=== PATIENT | female | born 1945 | race Two or more races ===

== ENCOUNTER → 2017-07-19 | Emergency (ER) | payer OTHER ==
[~2017-07-19] VITALS: Ht 165.1 cm; Wt 68.9 kg
== END | disposition left against medical advice (07) ==
LOC: ER 15:54
DX: Z53.20 Procedure and treatment not carried out because of patient's decision for unspecified reasons (principal)

== ENCOUNTER → 2018-05-08 06:00 | Outpatient (CLI) | payer OTHER ==
[~2018-05-08 06:00] MED LIST: COZAAR100 MG; LEXAPRO5 MG; SINGULAIR10 MG; ZYRTEC10 M3
== END | disposition home or self-care (01) ==
LOC: EKG 06:00 → ADM 09:15 → EDSTATUS 05-16 09:15 → CIR.AMB 05-16 09:15
DX: N81.6 Rectocele (principal); K57.30 Diverticulosis of large intestine without perforation or abscess without bleeding; Z01.810 Encounter for preprocedural cardiovascular examination; K64.1 Second degree hemorrhoids; K59.02 Outlet dysfunction constipation; Z01.812 Encounter for preprocedural laboratory examination

== ENCOUNTER 2018-12-25 06:39 | Emergency (ER) | payer OTHER ==
[~2018-12-25] VITALS: Ht 165.1 cm; Wt 68.9 kg
== END 2018-12-25 10:33 | disposition home or self-care (01) ==
LOC: ER 06:39
DX: K29.70 Gastritis, unspecified, without bleeding (principal); R05 Cough

== ENCOUNTER 2020-08-08 07:57 | Emergency (ER) | payer OTHER ==
[~2020-08-08] VITALS: Ht 165.1 cm; Wt 71.7 kg
[2020-08-08] MEDS ORDERED: CLONAZEPAM0.5 MG PO (08:31)
[2020-08-08] MEDS ORDERED: CANDESARTAN CIL16 MG PO (08:31)
== END 2020-08-08 15:48 | disposition home or self-care (01) ==
LOC: ER 07:57
DX: K57.32 Diverticulitis of large intestine without perforation or abscess without bleeding (principal); R10.32 Left lower quadrant pain; Z03.818 Encounter for observation for suspected exposure to other biological agents ruled out

== ENCOUNTER 2020-10-15 07:15 | Emergency (ER) | payer OTHER ==
[~2020-10-15] VITALS: Ht 167.6 cm; Wt 73.5 kg
[~2020-10-15 07:15] MED LIST changes: +CANDESARTAN CIL16 MG PO; +CLONAZEPAM0.5 MG PO
[2020-10-15] MEDS ORDERED: ZANAFLEX4 M1 PO (07:22)
[2020-10-15] MEDS ORDERED: KETO10TA2 PO (10:01)
[2020-10-15] MEDS ORDERED: SKELAXIN800 MG PO (10:01)
== END 2020-10-15 10:06 | disposition home or self-care (01) ==
LOC: ER 07:15
DX: M54.2 Cervicalgia (principal); M62.838 Other muscle spasm; M54.12 Radiculopathy, cervical region

== ENCOUNTER 2020-10-20 10:36 | Outpatient (CLI) | payer OTHER ==
[~2020-10-20 10:36] MED LIST changes: +KETO10TA2 PO; +SKELAXIN800 MG PO; +ZANAFLEX4 M1 PO
== END 2020-10-20 10:52 | disposition home or self-care (01) ==
LOC: MRI 10:36
PROVIDERS: ATTEND General Practice
DX: M54.12 Radiculopathy, cervical region (principal)
CPT/HCPCS: 70540; 72141

== ENCOUNTER 2021-01-03 08:54 | Emergency (ER) | payer OTHER ==
[~2021-01-03] VITALS: Ht 165.1 cm; Wt 73.5 kg
[2021-01-03] MEDS ORDERED: MACROBID 100 M100 MG PO (14:18)
[2021-01-03] MEDS ORDERED: PYRIDIUM100 M1 PO (14:18)
== END 2021-01-03 14:23 | disposition home or self-care (01) ==
LOC: ER 08:54
DX: N39.0 Urinary tract infection, site not specified (principal); R10.31 Right lower quadrant pain; R10.32 Left lower quadrant pain; R31.29 Other microscopic hematuria

== ENCOUNTER 2021-01-13 09:54 | Outpatient (CLI) | payer OTHER ==
[~2021-01-13 09:54] MED LIST changes: +MACROBID 100 M100 MG PO; +PYRIDIUM100 M1 PO
== END 2021-01-13 15:38 | disposition home or self-care (01) ==
LOC: LAB 09:54
PROVIDERS: ATTEND Internal Medicine Hematology & Oncology
DX: R23.3 Spontaneous ecchymoses (principal); N81.89 Other female genital prolapse

== ENCOUNTER 2021-01-13 11:15 | Inpatient (IN) | payer OTHER ==
[~2021-01-13] VITALS: Ht 152.4 cm; Wt 526.2 kg
[2021-01-18] MEDS ORDERED: PRAVASTATIN SOD10 MG (09:43)
[2021-01-18] MEDS ORDERED: CICLOPIROX15 GM (09:43)
[2021-01-18] MEDS ORDERED: GABAPENTIN300 M2 (09:43)
[2021-01-18] MEDS ORDERED: ESTRADIOL42.5 GM (09:44)
[2021-01-18] MEDS ORDERED: BUSPIRONE HCL5 MG (09:44)
[2021-01-18] MEDS ORDERED: PREDNISOLONE ACE5 ML (09:44)
[2021-01-18] MEDS ORDERED: PANTOPRAZOLE SO40 MG (09:44)
[2021-01-21] MEDS ORDERED: ULTRAM50 MG PO (15:04)
[2021-01-21] MEDS ORDERED: INTESTINEX680 M1 PO (15:04)
== END 2021-01-21 16:48 | disposition home or self-care (01) | DRG 331 ==
LOC: O/R 01-18 07:18 → SURH 01-18 07:18
PROVIDERS: ADMIT Surgery; ATTEND Surgery
PROC: 0DQP4ZZ Repair Rectum, Percutaneous Endoscopic Approach (ICD-10-PCS; 2021-01-18)
PROC: 0DJD8ZZ Inspection of Lower Intestinal Tract, Via Natural or Artificial Opening Endoscopic (ICD-10-PCS; 2021-01-18)
PROC: 3E0F7SF Introduction of Other Gas into Respiratory Tract, Via Natural or Artificial Opening (ICD-10-PCS; 2021-01-18)
PROC: 0DTN4ZZ Resection of Sigmoid Colon, Percutaneous Endoscopic Approach (ICD-10-PCS; principal; 2021-01-18 12:45)
DX: K62.3 Rectal prolapse (principal); K57.30 Diverticulosis of large intestine without perforation or abscess without bleeding; K64.1 Second degree hemorrhoids; Z20.822 Contact with and (suspected) exposure to COVID-19

== ENCOUNTER 2021-02-14 12:37 | Emergency (ER) | payer OTHER ==
[~2021-02-14] VITALS: Ht 165.1 cm; Wt 72.6 kg
[~2021-02-14 12:37] MED LIST changes: +BUSPIRONE HCL5 MG; +CICLOPIROX15 GM; +ESTRADIOL42.5 GM; +GABAPENTIN300 M2; +INTESTINEX680 M1 PO; +PANTOPRAZOLE SO40 MG; +PRAVASTATIN SOD10 MG; +PREDNISOLONE ACE5 ML; +ULTRAM50 MG PO
[2021-02-14] MEDS ORDERED: ANALPRAM HC 2.5%4 GM RECTAL (17:02)
== END 2021-02-14 17:19 ==
LOC: ER 12:37
DX: K62.5 Hemorrhage of anus and rectum (principal); N81.6 Rectocele

== ENCOUNTER 2021-04-02 09:13 | Emergency (ER) | payer OTHER ==
[~2021-04-02] VITALS: Ht 165.1 cm; Wt 72.6 kg
[~2021-04-02 09:13] MED LIST changes: +ANALPRAM HC 2.5%4 GM RECTAL
[2021-04-02] MEDS ORDERED: PLAVIX75 MG PO (09:28)
[2021-04-02] MEDS ORDERED: MIRALAX17 GM PO (14:25)
== END 2021-04-02 14:59 | disposition home or self-care (01) ==
LOC: ER 09:13
DX: K59.09 Other constipation (principal)

== ENCOUNTER 2021-04-29 06:06 | Emergency (ER) | payer OTHER ==
[~2021-04-29] VITALS: Ht 165.1 cm; Wt 63.5 kg
[~2021-04-29 06:06] MED LIST changes: +MIRALAX17 GM PO; +PLAVIX75 MG PO
[2021-04-29] MEDS ORDERED: TERCONAZOLE20 GM VAG (08:48)
[2021-04-29] MEDS ORDERED: FLUCONAZOLE150 MG PO (08:48)
[2021-04-29] MEDS ORDERED: DERMOCREM TOP (08:48)
== END 2021-04-29 11:17 | disposition home or self-care (01) ==
LOC: ER 06:06
DX: B37.3 Candidiasis of vulva and vagina (principal); L29.2 Pruritus vulvae

== ENCOUNTER 2021-05-06 09:40 | Emergency (ER) | payer OTHER ==
[~2021-05-06] VITALS: Ht 165.1 cm; Wt 68.0 kg
[~2021-05-06 09:40] MED LIST changes: +DERMOCREM TOP; +FLUCONAZOLE150 MG PO; +TERCONAZOLE20 GM VAG
[2021-05-06] MEDS ORDERED: UTIX PO (13:04)
== END 2021-05-06 14:36 | disposition home or self-care (01) ==
LOC: ER 09:40
DX: N30.90 Cystitis, unspecified without hematuria (principal)

== ENCOUNTER → 2021-08-31 | Emergency (ER) | payer OTHER ==
[~2021-08-31] VITALS: Ht 165.1 cm; Wt 63.5 kg
[~2021-08-31] MED LIST changes: +UTIX PO
== END | disposition left against medical advice (07) ==
LOC: ER 04:42
DX: Z53.21 Procedure and treatment not carried out due to patient leaving prior to being seen by health care provider (principal)

== ENCOUNTER 2021-10-02 11:20 | Emergency (ER) | payer OTHER ==
[~2021-10-02] VITALS: Ht 170.2 cm; Wt 65.8 kg
[2021-10-02] MEDS ORDERED: ARICEPT5 MG (11:49)
[2021-10-02] MEDS ORDERED: LEXAPRO20 MG (11:49)
[2021-10-02] MEDS ORDERED: LIPITOR40 MG (11:49)
[2021-10-02] MEDS ORDERED: CLONAZEPAM1 M1 (11:49)
== END 2021-10-02 17:44 ==
LOC: ER 11:20
DX: R30.0 Dysuria (principal)

== ENCOUNTER 2022-03-30 12:30 | Inpatient (IN) | payer OTHER ==
[~2022-03-30] VITALS: Ht 170.2 cm; Wt 65.3 kg
[~2022-03-30 12:30] MED LIST changes: +ARICEPT5 MG; +CLONAZEPAM1 M1; +LEXAPRO20 MG; +LIPITOR40 MG
[2022-03-30] MEDS ORDERED: SEROQUEL50 MG PO (15:15)
[2022-04-04] MEDS ORDERED: ESTRADIOL42.5 GM (09:37)
[2022-04-04] MEDS ORDERED: SERTRALINE HCL100 MG (09:37)
[2022-04-04] MEDS ORDERED: ABATINEX680 MG (09:37)
[2022-04-06] MEDS ORDERED: DERMOPLAST PAIN78 GM TOP (14:06)
[2022-04-06] MEDS ORDERED: NEURONTIN300 MG PO (14:06)
[2022-04-06] MEDS ORDERED: INTESTINEX680 M1 PO (14:08)
== END 2022-04-06 14:35 | disposition home or self-care (01) | DRG 748 ==
LOC: O/R 04-04 06:00 → SURH 04-04 06:00 → SURG 04-04 07:00 → SURH 04-04 10:31 → SURG 04-04 12:30 → SURH 04-06 14:35
PROVIDERS: ADMIT Surgery; ATTEND Surgery
PROC: 3E0T3BZ Introduction of Anesthetic Agent into Peripheral Nerves and Plexi, Percutaneous Approach (ICD-10-PCS; 2022-04-04)
PROC: 0JQC0ZZ Repair Pelvic Region Subcutaneous Tissue and Fascia, Open Approach (ICD-10-PCS; principal; 2022-04-04 07:00)
DX: N81.6 Rectocele (principal); Z20.822 Contact with and (suspected) exposure to COVID-19

== ENCOUNTER 2022-07-23 14:32 | Emergency (ER) | payer OTHER ==
[~2022-07-23] VITALS: Ht 165.1 cm; Wt 58.1 kg
[~2022-07-23 14:32] MED LIST changes: +ABATINEX680 MG; +DERMOPLAST PAIN78 GM TOP; +NEURONTIN300 MG PO; +SEROQUEL50 MG PO; +SERTRALINE HCL100 MG
== END 2022-07-23 19:24 | disposition home or self-care (01) ==
LOC: ER 14:32
DX: K62.89 Other specified diseases of anus and rectum (principal); Z98.890 Other specified postprocedural states